=== PATIENT | female | born 1990 | race Caucasian/White ===

== ENCOUNTER 2024-12-31 20:43 | Emergency (ER) | payer SELFPAY ==
--- OUTSIDE RECORDS SUMMARY | 2024-08-09 10:30 | XMS_ITS | Continuity of Care Document ---
Author Organization [facility] Care [facility] Address [facility] [employer]ia utions [address] [place] [address] Phone Care Team Providers Care Data Warehouse Analyst Name Role Phone Mark Mathews DDS Unavailable Unavailable Procedures Procedure Date Limited Oral Evaluation-Problem Focused Panoramic Radiographic Image Ext, Erupt Tth/Expsd Root-Elev &/Or Forc eps Remvl Treatment Plan Completed Advance Directives Directive Yes / No Effective Date File Name No Information Encounters Encounter Description Practice Location Reason(s) For Visit Diagnoses Date Provider Providers Copied on Encounter [facility] , [facility] [employer] [facility], [place], [address], [place] tel:[phone] [place] [address] Encounter for dental exam and cleaning w/o abnormal findings Reid Flores. [address] [place] [address], [id number] [address] [place] [address], [id number], [place]. tel:[phone] Family History Family Member Type Diagnosis Age At Onset No Information Payers Payer name Insurance type Covered constitution party ID Essiea jonas(s) Jin [employer] [id number] Social History Type Description Quantity Date Captured Comments Sex Female Smoking Status No Information Chief Complaint And Reason For Visit No Information Reason For Referral Reason For Referral No Information History Of Present Illness Encounter Date Complaint History Of Prese nt Illness No Information Functional Status Date Functional Assessmen t No Information Instructions Date Instruction Additional Infor mation No Information Assessments Type Assessment Date No Information Patient Care Teams Name Effective Dates (start - stop) Status Members No Information
[2024-12-31 20:52] VITALS: BP 140/75; PULSE 71; RESP 18; TEMP 37.1; O2SAT 94; BMI 36.6
--- NOTE | 2024-12-31 21:05 | XRR_ITS ---
PROCEDURE INFORMATION: Exam: XR Right Knee Exam date and time: 12/31/2024 9:12 PM Age: 34 years old Clinical indication: Pain; Knee; Right; Additional info: R knee pain TECHNIQUE: Imaging protocol: Radiologic exam of the right knee. Views: 3 views. COMPARISON: No relevant prior studies available. FINDINGS: Bones/joints: Normal. Soft tissues: Normal. XR/XR knee RT 3V* [id number] IMPRESSION: No acute findings.
--- NOTE | 2024-12-31 21:06 | ED_ITS ---
HPI - Extremity Problem General: Chief complaint: Extremity Injury, Lower Stated complaint: Sprung Knee Cap Time Seen by Provider: 12/31/24 20:53 History of Present Illness: This 34-year-old female presents with a 2-day history of left knee pain that she believes began while sleeping approximately 2 days ago. The pain initially started yesterday but was mild, however it has significantly worsened today. She describes the pain as located primarily around the anterior aspect of the knee, with some radiation to the lateral side. The patient reports mechanical symptoms including intermittent popping sensation when sitting up and down, though knee flexion does not consistently reproduce the popping. She notes subjective swelling of the affected knee. The pain significantly impacts her mobility, causing her to walk with a limp and describing that she can barely walk due to the discomfort. She denies any specific traumatic event or mechanism of injury, stating she may have spun her knee back during sleep. This is the first episode of significant knee pain for this patient, with no prior history of knee problems. She has not taken any medications or interventions for the pain at home. Related Data Previous Rx's ?Medication ?Instructions ?Recorded indomethacin 50 mg capsule 50 mg PO TID #20 caps 12/31 Allergies Allergy/AdvReac Type Severity Reaction Status Date / Time No Known Allergies Allergy Verified 12/31/24 20:55 Physical Exam Const: COMMON NORMALS: no acute distress GENERAL APPEARANCE: cooperative; not ill appearing and not frail appearing HENMT: COMMON NORMALS: normocephalic, atraumatic and Normal external nose present HEAD & SCALP: normocephalic and atraumatic FACE & SINUS: normal facial exam and face symmetric NOSE: Normal external nose present Eye: COMMON NORMALS: Equal, round and reactive pupils present and EOMs intact bilaterally PUPIL: Yes Equal, round and reactive pupils present Neck/C-Spine: GENERAL: Yes trachea midline Chest: CHEST: Yes Symmetrical chest wall rise Resp: COMMON NORMALS: normal respiratory effort, No retractions, No use of accessory muscles and clear to auscultation bilaterally AUSCULTATION: clear to auscultation bilaterally Cardio: COMMON NORMALS: regular rate and regular rhythm RATE: regular rate RHYTHM: regular rhythm Extremity: COMMON NORMALS: no pedal edema Neuro: YOLY COMA SCALE: document GCS findings Harris coma scale eye opening: Spontaneous Harris coma scale verbal response: Orientated Harris coma scale motor response: Obey commands Yoly coma scale total score: 15 SENSORY EXAM: Yes extremities (intact) Psych: COMMON NORMALS: speech normal SPEECH: Yes normal speech Skin: COMMON NORMALS: no rashes or lesions noted GENERAL SKIN EXAM: no rashes or lesions noted Course Vital Signs: Vital signs: Vital Signs Temperature 98.8 F 12/31/24 20:52 Pulse Rate 71 12/31/24 20:52 Respiratory Rate 18 12/31/24 21:24 Blood Pressure 140/75 12/31/24 20:52 Pulse Oximetry 96 12/31/24 21:24 Oxygen Delivery Me thod Room Air 12/31/24 20:52 MDM - Extremity (Nontraumatic) Medical Decision Making No deformity to the knee. X-ray is negative, but she does have a small effusion. She will be placed in the immobilizer for no more than 5 days. Suspect patellar subluxation in this patient. Weightbearing as tolerated. PCP versus orthopedic follow-up. 1 dose of steroid here. Short dose of anti- inflammatories Lab Data Radiology Impressions Knee X-Ray 12/31/24 21:05 IMPRESSION: No acute findings. All radiology interpretation(s) finalized by discharge Discharge Plan Discharge Patient Disposition: Home Clinical Impression: Acquired subluxation of patella Condition: Stable Prescriptions: New indomethacin 50 mg capsule 50 mg PO TID Qty: 20 0RF Rx Instructions: administer with food or milk Discharge Orders: Discharge ED (Routine); Ordered 12/31/24 Ordered By: Sin Mazariegos Patient Instructions: Knee Pain (ED), Opioid Safety, Pain Management, Patient Portal & Kiki Instructions Activity Restrictions/Additional Instructions: Wear the knee immobilizer no more than 5 days. Medication as directed. Follow- up with your doctor this coming week. Call tomorrow for an appointment. Return for any problems such as fever, redness, swelling of the leg, etc. Print Language: Ivorian Coding Level of Care Code ED Crisis Intervention Specialist for Ivette Castro
[2024-12-31 21:24] VITALS: RESP 18; O2SAT 96
[2024-12-31] MEDS: oxyCODONE-APAP 5-325 mg Tablet 2 TAB PO (21:24)
[2024-12-31 22:30] VITALS: BP 141/82; PULSE 91; RESP 18; O2SAT 97
== END 2024-12-31 22:30 | disposition home or self-care (01) ==
PROVIDERS: Emergency Provider Emergency Medicine
DX: S83.091A Other subluxation of right patella, initial encounter (principal); X58.XXXA Exposure to other specified factors, initial encounter
CPT/HCPCS: 73562; 99283; J7512; J9999